=== PATIENT | male | born 1955 | race Caucasian/White ===

== ENCOUNTER 2017-07-13 08:38 | Day surgery (SDC) | payer BC ==
[~2017-07-13 08:38] MED LIST: Lactated Ringers 1,000 ML IV SCH; Sodium Chloride 0.9% 10 ML Syringe FLUSH PRN
[2017-07-13] MEDS ORDERED: cefOXitin 1 GM in Premix Bag 1 BAG IV ONE (10:00)
[2017-07-13] MEDS ORDERED: Propofol 200 MG/20 ML SDV IV ONE (10:40)
[2017-07-13] MEDS ORDERED: Midazolam 1 MG/ML 2 ML SDV IV ONE (10:40)
[2017-07-13] MEDS ORDERED: Lidocaine 1% with EPINEPHrine 1:100,000 20 ML MDV INJECT ONE (11:18)
[2017-07-13] MEDS ORDERED: Acetaminophen/HYDROcodone 325-5 MG Tab PO PRN (11:26)
--- NOTE | 2017-07-13 11:26 | PCM.OPNOTE ---
- General Post-Op/Procedure Note Date of Surgery/Procedure: 07/13/17 Operative Procedure(s): 1. colonoscopy with cold forcep biopsy. 2. exam under anesthesia with fistulotomy Findings: multiple rectal polyps inbound call center representative biospy taken superficial fistula in ano Pre Op Diagnosis: need for screening c scope. hx of recurrent perirectal abscess Post-Op Diagnosis: multiple rectal polyps inbound call center representative biospy taken. superficial fistula in ano Anesthesia Technique: Local (5 nl 1 % lido with epi/0.5% buvipicaine), MAC Primary Surgeon: Cruzito Jon Anesthesia Provider: Maribel Reed Pathology: rectal polyps Complications: None Condition: Good Free Text/Narrative:: see dictation
--- NOTE | 2017-07-16 07:30 | OR ---
DATE OF OPERATION: 07/13/2017 SURGEON: Cruzito Jon MD PROCEDURE PERFORMED: Colonoscopy with cold forceps biopsy and exam under anesthesia with fistulotomy. INDICATIONS FOR PROCEDURE: This is a 61-year-old white male, who is referred to me with two issues. The initial one was a need for his initial screening colonoscopy, and the second one involved the fact that he was having recurrent perirectal abscesses that were spontaneously draining involving the right buttock cheek. On the basis of my evaluation, I recommended a colonoscopy, followed by an exam under anesthesia with possible fistulotomy or seton placement. DESCRIPTION OF OPERATION: After an excellent IV sedation was administered, digital rectal exam was performed. No marked abnormality was noted. Flexible colonoscope was inserted and advanced to the cecum without difficulty. The prep was excellent. The following findings were noted: Ascending colon was unremarkable. Transverse colon was unremarkable. Descending colon, unremarkable. Sigmoid, unremarkable. Rectum: In the area of the rectum, there were multiple hyperplastic appearing polyps, which were biopsied with cold biopsy forceps, and this was done as a student services representative sample as there were too numerous to biopsy. Having completed this, the patient's firm indurated area, which we saw in the preop area, no longer existed. In fact, I could not feel even a tract. We then inserted the anal speculum, and we saw some evidence of previous scarring, and I was able to pass a lacrimal duct probe down one of the anal crypts to the skin in the generalized area where his induration and abscess are located. At this point, we prepped the area with Betadine and injected 1:1 mixture of 1% lidocaine with epinephrine and 0.5% bupivacaine, approximately 5 mL, in the area, and using electrocautery, we unroofed the fistula, thereby performing a fistulotomy. The wound was then packed with Gelfoam. The patient was then taken to recovery room in good condition, having tolerated the procedure well. /[id number] /[id number]
== END 2017-07-13 12:19 | disposition home or self-care (01) ==
LOC: FB.SDS 08:38
PROVIDERS: ATTEND Surgery
DX: Z12.11 Encounter for screening for malignant neoplasm of colon (principal); K62.1 Rectal polyp; K61.1 Rectal abscess; J45.30 Mild persistent asthma, uncomplicated; K21.9 Gastro-esophageal reflux disease without esophagitis; Z79.82 Long term (current) use of aspirin; Z79.899 Other long term (current) drug therapy; F17.210 Nicotine dependence, cigarettes, uncomplicated
CPT/HCPCS: 45380; 46270; 88305; J0694; J2250; J2704; J7120